=== PATIENT | female | born 1975 | race Caucasian/White ===

== ENCOUNTER 2018-12-16 07:08 | Day surgery (SDC) | payer OTHER ==
[2018-12-16] MEDS ORDERED: FERRIC CARBOXYMALTOSE 750 MG in SODIUM CHLORIDE 250 ML IVPB ONE (09:30)
[2018-12-16 15:10] VITALS: BP 151/96; PULSE 66; TEMP 98.7
== END 2018-12-16 11:00 | disposition home or self-care (01) ==
LOC: JONCNONCHE 07:08 → J7W 08:34 → JONCNONCHE 11:00
PROVIDERS: ATTEND Internal Medicine Hematology & Oncology
PROC: 3E033GC Introduction of Other Therapeutic Substance into Peripheral Vein, Percutaneous Approach (ICD-10-PCS; principal; 2018-12-16)
DX: D50.9 Iron deficiency anemia, unspecified (principal)
CPT/HCPCS: 96365; J1439

== ENCOUNTER 2018-12-23 07:05 | Day surgery (SDC) | payer OTHER ==
[2018-12-23 09:24] VITALS: TEMP 98.3
[2018-12-23] MEDS ORDERED: FERRIC CARBOXYMALTOSE 750 MG in SODIUM CHLORIDE 250 ML IVPB ONE (10:00)
[2018-12-23 12:39] VITALS: BP 131/83; PULSE 69
== END 2018-12-23 10:20 | disposition home or self-care (01) ==
LOC: JONCNONCHE 07:05 → J7W 08:37 → JONCNONCHE 10:20
PROVIDERS: ATTEND Internal Medicine Hematology & Oncology
PROC: 3E033GC Introduction of Other Therapeutic Substance into Peripheral Vein, Percutaneous Approach (ICD-10-PCS; principal; 2018-12-23)
DX: D50.9 Iron deficiency anemia, unspecified (principal)
CPT/HCPCS: 96365; J1439

== ENCOUNTER 2019-08-05 04:41 | Day surgery (SDC) | payer OTHER ==
[2019-08-01 10:43] VITALS: BMI 31.9
[~2019-08-05 04:41] MED LIST: BUPIVACAINE HCL/PF 0.5% (5 MG/ML) 30 ML VIAL IJ ONE
--- NOTE | 2019-08-05 07:05 | HP ---
Admitting History and Physical - Admission Chief Complaint: Ovarian cyst History of Present Illness: 44 yo Para 2, with ovarian cyst, is pre op for laparoscopic ovarian cystectomy. History Source: Patient Limitations to Obtaining History: No Limitations - Past Medical History ...LMP: 07/01/19 ...: No - Past Surgical History Additional Past Surgical History: Laparoscopic surgery - Smoking History Smoking history: Never smoked Aproximately how many cigarettes per day: 0 - Alcohol/Substance Use Hx Alcohol Use: Yes (OCCAS) - Social History History of Recent Travel: No Home Medications - Allergies Allergies/Adverse Reactions: Allergies Allergy/AdvReac Type Severity Reaction Status Date / Time No Known Allergies Allergy Verified 10/26/14 14:03 - Home Medications Home Medications: Ambulatory Orders Carvedilol [Coreg -] 6.25 mg PO BID 08/01/19 Celecoxib [CeleBREX -] 100 mg PO BID 08/01/19 Gabapentin 400 mg PO HS 08/01/19 Oxycodone HCl/Acetaminophen [Percocet 5-325 mg Tablet] 1 - 2 tab PO Q6H PRN #16 tab MDD 6 08/05/19 Family Medical History Family History: Unremarkable Review of Systems - Review of Systems Constitutional: reports: No Symptoms Eyes: reports: No Symptoms HENT: reports: No Symptoms Neck: reports: No Symptoms Cardiovascular: reports: No Symptoms Respiratory: reports: No Symptoms Gastrointestinal: reports: No Symptoms Genitourinary: reports: Pain Breasts: reports: No Symptoms Reported Musculoskeletal: reports: No Symptoms Integumentary: reports: No Symptoms Neurological: reports: No Symptoms Endocrine: reports: No Symptoms Hematology/Lymphatic: reports: No Symptoms Psychiatric: reports: No Symptoms Pain Intensity: 4 Physical Examination Vital Signs: Vital Signs Temperature 97.6 F 08/05/19 06:32 Pulse Rate 68 08/05/19 06:32 Respiratory Rate 20 08/05/19 06:32 Blood Pressure 138/90 08/05/19 06:32 O2 Sat by Pulse Oximetry (%) 95 08/05/19 06:32 Constitutional: Yes: Well Nourished Eyes: Yes: Conjunctiva Clear HENT: Yes: Atraumatic Neck: Yes: Supple Cardiovascular: Yes: Regular Rate and Rhythm Respiratory: Yes: Regular Gastrointestinal: Yes: Normal Bowel Sounds Neurological: Yes: Alert, Oriented ...Motor Strength: WNL Psychiatric: Yes: Alert, Oriented Problem List - Problems (1) Ovarian cyst Problems reviewed: Yes Code(s): N83.209 - UNSPECIFIED OVARIAN CYST, UNSPECIFIED SIDE Qualifiers: Laterality: right Qualified Code(s): N83.201 - Unspecified ovarian cyst, right side Assessment/Plan Ovarian cyst Pre op for Laparoscopic ovarian cystectomy Consent signed Anesthesia to see patient
[2019-08-05] MEDS ORDERED: BUPIVACAINE HCL/PF 0.5% (5 MG/ML) 30 ML VIAL IJ ONE ×3 (07:20→10:15)
[2019-08-05] MEDS ORDERED: MIDAZOLAM HCL 2 MG/2 ML SINGLE DOSE VIAL ONE ×2 (07:34→10:19)
[2019-08-05] MEDS ORDERED: PROPOFOL 20 ML ONE (07:39)
[2019-08-05] MEDS ORDERED: ROCURONIUM BROMIDE 50 MG/5 ML SYRINGE ONE (07:39)
[2019-08-05] MEDS ORDERED: DESFLURANE GAS 240 ML BOTTLE IH ONE ×2 (08:57→09:05)
[2019-08-05] MEDS ORDERED: HYDROmorphone HCl 2 MG/ML VIAL ONE (09:10)
[2019-08-05] MEDS ORDERED: GLYCOPYRROLATE 0.2 MG/1 ML VIAL ONE (10:03)
[2019-08-05] MEDS ORDERED: NEOSTIGMINE METHYLSULFATE 0.5 MG/1 ML - 10 ML MDV ONE (10:04)
[2019-08-05] MEDS ORDERED: ONDANSETRON 4 MG/2 ML VIAL IVPUSH PRN (10:25)
[2019-08-05] MEDS ORDERED: oxyCODONE HCL 5 MG TABLET PO PRN (10:25)
[2019-08-05] MEDS ORDERED: LACTATED RINGERS SOLUTION 1,000 ML IV SCH (10:30)
--- NOTE | 2019-08-05 10:55 | OP ---
Operative Note - Note: Operative Date: 08/05/19 Pre-Operative Diagnosis: right ovarian cyst Operation: laprascopic right ovarian cystectomy Surgeon: Ana Cooley Superior Court Judge: Sigrid Ac Anesthesiologist/PORTABLE MACHINE SANDER: Angel Baron Anesthesia: General Specimens Removed: right ovarian cyst wall Estimated Blood Loss (mls): 20 Drains, Volume Out (mls): 300 (jernigan) Fluid Volume Replaced (mls): 1,200 Operative Report Dictated: Yes
--- NOTE | 2019-08-05 10:57 | SURG ---
Surgery Engineer Note Engineer: Sigrid Ac PA-C Date of Service: 08/05/19 Diagnosis: right ovarian cyst Procedure: laprascopic right ovarian cystectomy I was present for the entirety of the operative procedure. For further detail, please refer to operative report. Visit type - Case Type Case Type: Scheduled - Emergency Emergency Visit: No - New patient This patient is new to me today: Yes Date on this admission: 08/05/19
[2019-08-05 12:32] VITALS: TEMP 98.1
[2019-08-05] MEDS ORDERED: ONDANSETRON 4 MG/2 ML VIAL ONE (12:33)
[2019-08-05] MEDS ORDERED: ONDANSETRON 4 MG/2 ML VIAL IVPUSH ONE (12:35)
[2019-08-05 16:39] VITALS: BP 132/80; PULSE 83
--- NOTE | 2019-08-08 16:57 | PATH ---
Surgical Pathology Report Patient Name: ALYSHA BENTLEY [facility]. Rec. #: [id number] /Age/Gender: 1975 (Age: 44) / F Account: [id number] Location: [facility] Taken: 08/05/2019 Received: 08/05/2019 Reported: 08/08/2019 Physicians: Ana Cooley M.D. Specimen(s) Received RIGHT OVARIAN CYST WALL Clinical History Right ovarian cyst Final Diagnosis RIGHT OVARIAN CYST WALL, EXCISION: HEMORRHAGIC CORPUS LUTEUM CYST. Electronically Signed Terence Eid M.D. Gross Description Received in formalin labeled "right ovarian cyst wall," is a 3.8 x 3.0 x 0.6 cm aggregate of yellow-red portions of soft tissue, possibly consistent with a disrupted cyst. The specimen is entirely submitted in 3 cassettes. DL/08/05/2019 saudi08/05/2019
--- NOTE | 2019-08-23 16:26 | OP ---
DATE OF OPERATION: 08/05/2019 PREOPERATIVE DIAGNOSIS: Right ovarian cyst. POSTOPERATIVE DIAGNOSIS: Right ovarian cyst and pelvic adhesions. PROCEDURE: Laparoscopic right ovarian cystectomy and adhesiolysis. SURGEON: Ana Cooley MD BUSINESS SUPPORT MANAGER: RODDY Corado ANESTHESIA: General. COMPLICATIONS: Pelvic adhesions. ESTIMATED BLOOD LOSS: 20 mL. DESCRIPTION OF PROCEDURE: Patient was taken to the operating room where general anesthesia was administered. Patient was then placed in lithotomy position. She was then prepped and draped in proper sterile fashion. A weighted speculum was placed in the vagina, and the anterior lip of the cervix was grasped with a single-tooth tenaculum. Then a uterine manipulator was then gently introduced into the uterine cavity as a means to manipulate the uterus. Reyes catheter was then inserted. Attention was then turned to the abdomen where an infraumbilical incision was then made. The patient due to previous surgery there was a lot of scar tissue below the umbilicus, and the Jeremy trocar was used. After opening the incision, the fascia was then grabbed with the Gonzales, and the Jeremy trocar was then introduced into the abdominal cavity and then the trocar was then stabilized using two 0 Vicryl sutures. The scope was then introduced into the cavity. There were multiple adhesions noted. The sigmoid was adherent to the bowel and also the upper quadrant the bowel was adherent to the anterior abdominal wall. Due to the difficulty to place the other trocar, the general surgeon was called for consultation before placing the other trocar. It was very challenging placing the trocar. After 20-30 minutes trying to evaluate the cavity, the anatomy, decision was made to place the other 2 trocars, 1 suprapubic on the middle and 1 on the left lower quadrant. Then the grasper was used to grab the ovarian ligament and expose the right ovary to the surface. Then once it was exposed, the bipolar was used to incise the cyst and remove the ovarian cyst wall. The remaining of the cyst wall was also cauterized. Hemostasis was assured. Then when finished, the pelvis was completely irrigated. Hemostasis was obtained using the bipolar cautery. Then the surgeon took over to bring down the adhesions. Then the ELECTRICAL FOREMAN removed the Reyes catheter and uterine manipulator, and the incisions were closed using Dermabond and sutures. Then the instruments were removed. Patient was taken out of lithotomy position. She was taken to PACU in stable condition. ANA COOLEY M.D. [id number]
== END 2019-08-05 16:39 | disposition home or self-care (01) ==
LOC: JASU-SURG 04:41
PROVIDERS: ATTEND Obstetrics & Gynecology
PROC: 0UB04ZZ Excision of Right Ovary, Percutaneous Endoscopic Approach (ICD-10-PCS; principal; 2019-08-05 07:57)
DX: N83.201 Unspecified ovarian cyst, right side (principal); N73.6 Female pelvic peritoneal adhesions (postinfective)
CPT/HCPCS: 84703; 88304-TC; 94760

== ENCOUNTER 2020-08-17 04:20 | Day surgery (SDC) | payer OTHER ==
[2020-08-14 10:54] VITALS: BMI 33.9
[2020-08-17] MEDS ORDERED: DEXAMETHASONE SOD PHOSPHATE/PF 10 MG/ML SDV ONE (07:15)
[2020-08-17] MEDS ORDERED: BUPIVACAINE HCL 50 ML ONE (07:15)
[2020-08-17] MEDS ORDERED: BUPIVACAINE HCL/PF 0.75% 10 ML VIAL ONE (07:16)
[2020-08-17] MEDS ORDERED: SODIUM CHLORIDE 0.9% P/F 10 ML VIAL IJ ONE (07:35)
[2020-08-17] MEDS ORDERED: LIDOCAINE HCL 1% PRESERVATIVE FREE - 30ML VIAL INF ONE (14:54)
[2020-08-17] MEDS ORDERED: DEXAMETHASONE SOD PHOSPHATE 10 MG/1 ML VIAL IVPUSH ONE (14:55)
[2020-08-17] MEDS ORDERED: IOHEXOL 180 MG/1 ML ML IT ONE (14:56)
[2020-08-17 18:40] VITALS: PULSE 70; TEMP 97.6
[2020-08-17 18:43] VITALS: BP 130/80
== END 2020-08-17 16:45 | disposition home or self-care (01) ==
LOC: JASU-SURG 04:20
PROVIDERS: ATTEND Pain Medicine Pain Medicine
PROC: 3E0R33Z Introduction of Anti-inflammatory into Spinal Canal, Percutaneous Approach (ICD-10-PCS; 2020-08-17)
PROC: 3E0R3BZ Introduction of Anesthetic Agent into Spinal Canal, Percutaneous Approach (ICD-10-PCS; principal; 2020-08-17 17:00)
DX: M54.16 Radiculopathy, lumbar region (principal)
CPT/HCPCS: 76000-TC-FY; 84703; J1100

== ENCOUNTER 2021-02-18 05:20 | Day surgery (SDC) | payer OTHER ==
[2021-02-15 17:52] VITALS: BMI 33.9
[2021-02-18] MEDS ORDERED: ACETAMINOPHEN INJECTION 100 ML IVPB ONE (10:41)
[2021-02-18] MEDS ORDERED: ACETAMINOPHEN 1000 MG/100 ML VIAL (NON FORMULARY) IVPB ONE (10:45)
[2021-02-18 14:31] VITALS: PULSE 58; TEMP 97.3
[2021-02-18 14:33] VITALS: BP 135/72
== END 2021-02-18 12:45 | disposition home or self-care (01) ==
LOC: JRADIR 05:20
PROVIDERS: ATTEND Internal Medicine Gastroenterology
PROC: 0FB03ZX Excision of Liver, Percutaneous Approach, Diagnostic (ICD-10-PCS; principal; 2021-02-18)
DX: K75.81 Nonalcoholic steatohepatitis (NASH) (principal); K74.00 Hepatic fibrosis, unspecified
CPT/HCPCS: 47000; 76942-TC; 87899; 88305-TC; 88313-TC; J0131

== ENCOUNTER 2022-07-09 15:16 | Day surgery (SDC) | payer OTHER ==
[~2022-07-09 15:16] MED LIST changes: -BUPIVACAINE HCL/PF 0.5% (5 MG/ML) 30 ML VIAL IJ ONE; +CYANOCOBALAMIN (VITAMIN B-12) 1000 MCG/1 ML VIAL IM ONE; +IRON SUCROSE INJECTION 200 MG in SODIUM CHLORIDE 100 ML IVPB ONE
[2022-07-09 16:53] VITALS: RESP 20; TEMP 97.8
[2022-07-09 17:00] VITALS: BP 119/76; PULSE 66
== END 2022-07-09 16:10 | disposition home or self-care (01) ==
LOC: JONCNONCHE 15:16
PROVIDERS: ATTEND Internal Medicine Hematology & Oncology
PROC: 3E033GC Introduction of Other Therapeutic Substance into Peripheral Vein, Percutaneous Approach (ICD-10-PCS; principal; 2022-07-09)
DX: D50.9 Iron deficiency anemia, unspecified (principal)
CPT/HCPCS: 96365; J1756

== ENCOUNTER 2022-07-15 14:52 | Day surgery (SDC) | payer OTHER ==
[2022-07-15] MEDS ORDERED: IRON SUCROSE INJECTION 200 MG in SODIUM CHLORIDE 100 ML IVPB ONE (15:00)
[2022-07-15 16:18] VITALS: RESP 18; TEMP 98.1
[2022-07-15] MEDS ORDERED: CYANOCOBALAMIN (VITAMIN B-12) 1000 MCG/1 ML VIAL IM ONE (16:30)
[2022-07-15 18:15] VITALS: BP 118/76; PULSE 64
== END 2022-07-15 16:30 | disposition home or self-care (01) ==
LOC: JONCNONCHE 14:52
PROVIDERS: ATTEND Internal Medicine Hematology & Oncology
PROC: 3E033GC Introduction of Other Therapeutic Substance into Peripheral Vein, Percutaneous Approach (ICD-10-PCS; principal; 2022-07-15)
DX: D50.9 Iron deficiency anemia, unspecified (principal)
CPT/HCPCS: 96365; J1756

== ENCOUNTER 2022-07-22 15:37 | Day surgery (SDC) | payer OTHER ==
[~2022-07-22 15:37] MED LIST changes: -CYANOCOBALAMIN (VITAMIN B-12) 1000 MCG/1 ML VIAL IM ONE
[2022-07-22] MEDS ORDERED: CYANOCOBALAMIN (VITAMIN B-12) 1000 MCG/1 ML VIAL IM ONE (15:45)
[2022-07-22 17:14] VITALS: BP 138/72; PULSE 72; RESP 16; TEMP 97.8
== END 2022-07-22 17:14 | disposition home or self-care (01) ==
LOC: JONCNONCHE 15:37
PROVIDERS: ATTEND Internal Medicine Hematology & Oncology
PROC: 3E033GC Introduction of Other Therapeutic Substance into Peripheral Vein, Percutaneous Approach (ICD-10-PCS; principal; 2022-07-22)
DX: D50.9 Iron deficiency anemia, unspecified (principal)
CPT/HCPCS: 96365; J1756

== ENCOUNTER 2022-07-29 09:54 | Day surgery (SDC) | payer OTHER ==
[2022-07-29] MEDS ORDERED: CYANOCOBALAMIN (VITAMIN B-12) 1000 MCG/1 ML VIAL IM ONE (10:00)
[2022-07-29] MEDS ORDERED: IRON SUCROSE INJECTION 200 MG in SODIUM CHLORIDE 100 ML IVPB ONE (10:00)
[2022-07-29 16:40] VITALS: BP 125/76; PULSE 60; RESP 18; TEMP 98
== END 2022-07-29 11:05 | disposition home or self-care (01) ==
LOC: JONCNONCHE 09:54
PROVIDERS: ATTEND Internal Medicine Hematology & Oncology
DX: D50.9 Iron deficiency anemia, unspecified (principal)
CPT/HCPCS: 96365; J1756

== ENCOUNTER 2022-10-28 15:30 | Day surgery (SDC) | payer OTHER ==
[2022-10-28 18:08] VITALS: BP 130/83; PULSE 67; RESP 20; TEMP 98.1
== END 2022-10-28 16:45 | disposition home or self-care (01) ==
LOC: JONCNONCHE 15:30
PROVIDERS: ATTEND Internal Medicine Hematology & Oncology
PROC: 3E033GC Introduction of Other Therapeutic Substance into Peripheral Vein, Percutaneous Approach (ICD-10-PCS; principal; 2022-10-28)
DX: D50.9 Iron deficiency anemia, unspecified (principal)
CPT/HCPCS: 96365; J1756

== ENCOUNTER 2022-11-04 15:30 | Day surgery (SDC) | payer OTHER ==
[2022-11-04 18:21] VITALS: BP 135/74; PULSE 68; RESP 20; TEMP 98.1
== END 2022-11-04 16:15 | disposition home or self-care (01) ==
LOC: JONCNONCHE 15:30
PROVIDERS: ATTEND Internal Medicine Hematology & Oncology
PROC: 3E033GC Introduction of Other Therapeutic Substance into Peripheral Vein, Percutaneous Approach (ICD-10-PCS; principal; 2022-11-04)
DX: D50.9 Iron deficiency anemia, unspecified (principal)
CPT/HCPCS: 96365; J1756

== ENCOUNTER 2022-11-11 08:49 | Day surgery (SDC) | payer OTHER ==
[2022-11-11] MEDS ORDERED: IRON SUCROSE INJECTION 200 MG in SODIUM CHLORIDE 100 ML IVPB ONE (09:00)
[2022-11-11] MEDS ORDERED: ACETAMINOPHEN 325 MG TABLET (FP) PO ONE ×2 (09:20→11:15)
[2022-11-11 17:33] VITALS: BP 123/75; PULSE 61; RESP 20; TEMP 97.7
== END 2022-11-11 10:20 | disposition home or self-care (01) ==
LOC: JONCNONCHE 08:49
PROVIDERS: ATTEND Internal Medicine Hematology & Oncology
PROC: 3E033GC Introduction of Other Therapeutic Substance into Peripheral Vein, Percutaneous Approach (ICD-10-PCS; principal; 2022-11-11)
DX: D50.9 Iron deficiency anemia, unspecified (principal)
CPT/HCPCS: 96365; J1756

== ENCOUNTER 2022-11-18 15:22 | Day surgery (SDC) | payer OTHER ==
[2022-11-18 16:25] VITALS: TEMP 97.7
[2022-11-18 16:56] VITALS: BP 137/86; PULSE 76; RESP 18
== END 2022-11-18 17:06 | disposition home or self-care (01) ==
LOC: JONCNONCHE 15:22
PROVIDERS: ATTEND Internal Medicine Hematology & Oncology
PROC: 3E033GC Introduction of Other Therapeutic Substance into Peripheral Vein, Percutaneous Approach (ICD-10-PCS; principal; 2022-11-18)
DX: D50.9 Iron deficiency anemia, unspecified (principal)
CPT/HCPCS: 96365; J1756

== ENCOUNTER 2022-11-25 15:16 | Day surgery (SDC) | payer OTHER ==
[2022-11-25 16:39] VITALS: BP 122/76; PULSE 67; RESP 19; TEMP 97.4
== END 2022-11-25 16:30 | disposition home or self-care (01) ==
LOC: JONCNONCHE 15:16
PROVIDERS: ATTEND Internal Medicine Hematology & Oncology
PROC: 3E033GC Introduction of Other Therapeutic Substance into Peripheral Vein, Percutaneous Approach (ICD-10-PCS; principal; 2022-11-25)
DX: D50.9 Iron deficiency anemia, unspecified (principal)
CPT/HCPCS: 96365; J1756

== ENCOUNTER 2023-06-12 15:15 | Day surgery (SDC) | payer OTHER ==
[2023-06-12 15:29] VITALS: RESP 18; TEMP 98.2
[2023-06-12 16:09] VITALS: BP 115/75; PULSE 71
== END 2023-06-12 16:23 | disposition home or self-care (01) ==
LOC: JONCNONCHE 15:15 → J7W 15:16 → JONCNONCHE 16:23
PROVIDERS: ATTEND Internal Medicine Hematology & Oncology
PROC: 3E033GC Introduction of Other Therapeutic Substance into Peripheral Vein, Percutaneous Approach (ICD-10-PCS; principal; 2023-06-12)
DX: D50.9 Iron deficiency anemia, unspecified (principal); D51.0 Vitamin B12 deficiency anemia due to intrinsic factor deficiency
CPT/HCPCS: 96365; J1756

== ENCOUNTER 2023-06-19 09:26 | Day surgery (SDC) | payer OTHER ==
[2023-06-19] MEDS ORDERED: IRON SUCROSE INJECTION 200 MG in SODIUM CHLORIDE 100 ML IVPB ONE (10:00)
[2023-06-19 11:42] VITALS: BP 110/71; PULSE 70; RESP 18; TEMP 98.1
== END 2023-06-19 10:45 | disposition home or self-care (01) ==
LOC: JONCNONCHE 09:26 → J7W 09:27 → JONCNONCHE 10:45
PROVIDERS: ATTEND Internal Medicine Hematology & Oncology
PROC: 3E033GC Introduction of Other Therapeutic Substance into Peripheral Vein, Percutaneous Approach (ICD-10-PCS; principal; 2023-06-19)
DX: D50.9 Iron deficiency anemia, unspecified (principal)
CPT/HCPCS: 96365; J1756

== ENCOUNTER 2023-06-26 15:11 | Day surgery (SDC) | payer OTHER ==
[~2023-06-26 15:11] MED LIST changes: +IRON SUCROSE COMPLEX 200 MG in SODIUM CHLORIDE 100 ML IVPB ONE; -IRON SUCROSE INJECTION 200 MG in SODIUM CHLORIDE 100 ML IVPB ONE
[2023-06-26 15:42] VITALS: RESP 18; TEMP 98
[2023-06-26 15:54] VITALS: BP 117/69; PULSE 70
== END 2023-06-26 15:55 | disposition home or self-care (01) ==
LOC: JONCNONCHE 15:11 → J7W 15:12 → JONCNONCHE 15:55
PROVIDERS: ATTEND Internal Medicine Hematology & Oncology
PROC: 3E033GC Introduction of Other Therapeutic Substance into Peripheral Vein, Percutaneous Approach (ICD-10-PCS; principal; 2023-06-26)
DX: D50.9 Iron deficiency anemia, unspecified (principal)
CPT/HCPCS: 96365

== ENCOUNTER 2023-07-03 09:06 | Day surgery (SDC) | payer OTHER ==
[2023-07-03] MEDS ORDERED: IRON SUCROSE COMPLEX 200 MG in SODIUM CHLORIDE 100 ML IVPB ONE (10:00)
[2023-07-03 14:51] VITALS: BP 116/72; PULSE 71; RESP 20; TEMP 98.1
== END 2023-07-03 10:30 | disposition home or self-care (01) ==
LOC: JONCNONCHE 09:06 → J7W 09:10 → JONCNONCHE 10:30
PROVIDERS: ATTEND Internal Medicine Hematology & Oncology
PROC: 3E033GC Introduction of Other Therapeutic Substance into Peripheral Vein, Percutaneous Approach (ICD-10-PCS; principal; 2023-07-03)
DX: D50.9 Iron deficiency anemia, unspecified (principal)
CPT/HCPCS: 96365

== ENCOUNTER 2024-05-30 14:27 | Day surgery (SDC) | payer OTHER ==
[2024-05-30] MEDS: IRON SUCROSE INJECTION 100 MG in SODIUM CHLORIDE 100 ML IVPB ONE (14:35)
[2024-05-30 15:59] VITALS: TEMP 98.4
[2024-05-30 16:01] VITALS: BP 114/74; PULSE 74; RESP 18
== END 2024-05-30 15:30 | disposition home or self-care (01) ==
LOC: JONCCHEMO 14:27 → J7W 14:42 → JONCCHEMO 15:30
PROVIDERS: ATTEND Internal Medicine Hematology & Oncology
PROC: 3E033GC Introduction of Other Therapeutic Substance into Peripheral Vein, Percutaneous Approach (ICD-10-PCS; principal; 2024-05-30)
DX: D50.9 Iron deficiency anemia, unspecified (principal)
CPT/HCPCS: 96365; J1756

== ENCOUNTER 2024-06-06 14:38 | Day surgery (SDC) | payer OTHER ==
[2024-06-06] MEDS: IRON SUCROSE INJECTION 100 MG in SODIUM CHLORIDE 100 ML IVPB ONE (14:36)
[2024-06-06 17:16] VITALS: RESP 18; TEMP 98.3
[2024-06-06 17:19] VITALS: BP 122/71; PULSE 66
== END 2024-06-06 15:40 | disposition home or self-care (01) ==
LOC: JONCCHEMO 14:38 → J7W 14:39 → JONCCHEMO 15:40
PROVIDERS: ATTEND Internal Medicine Hematology & Oncology
PROC: 3E033GC Introduction of Other Therapeutic Substance into Peripheral Vein, Percutaneous Approach (ICD-10-PCS; principal; 2024-06-06)
DX: D50.9 Iron deficiency anemia, unspecified (principal)
CPT/HCPCS: 96365; J1756

== ENCOUNTER 2024-06-13 14:22 | Day surgery (SDC) | payer OTHER ==
[2024-06-13] MEDS: IRON SUCROSE INJECTION 100 MG in SODIUM CHLORIDE 100 ML IVPB ONE (14:26)
[2024-06-13 16:44] VITALS: BP 102/63; PULSE 66; RESP 18; TEMP 97.8
== END 2024-06-13 15:13 | disposition home or self-care (01) ==
LOC: JONCCHEMO 14:22 → J7W 14:23 → JONCCHEMO 15:13
PROVIDERS: ATTEND Internal Medicine Hematology & Oncology
PROC: 3E033GC Introduction of Other Therapeutic Substance into Peripheral Vein, Percutaneous Approach (ICD-10-PCS; principal; 2024-06-13)
DX: D50.9 Iron deficiency anemia, unspecified (principal)
CPT/HCPCS: 96365; J1756